=== PATIENT | female | born 1940 | race Caucasian/White ===

== ENCOUNTER 2018-10-16 23:50 | Emergency (ER) | payer OTHER ==
[~2018-10-16] VITALS: Ht 152.4 cm; Wt 60.3 kg
[2018-10-17 00:14] VITALS: BP_SYST 152
[2018-10-17 02:04] LABS: BILIRUBIN,URINE NEGATIVE (NEGATIVE); BLOOD, URINE 3+ (NEGATIVE); CLARITY/URINE CLEAR (CLEAR); COLOR,URINE RED (YELLOW); GLUCOSE,URINE NEGATIVE (NEGATIVE); KETONES,URINE NEGATIVE (NEGATIVE); LEUKOCYTE ESTERASE ,URINE 3+ (NEGATIVE); NITRITE, URINE NEGATIVE (NEGATIVE); PROTEIN URINE 1+ (NEGATIVE); UROBILINOGEN,URINE 0.2 (0.2-1.0)
[2018-10-17 02:15] LABS: BACTERIA,URINE FEW /HPF (None Seen); RBC,URINE >100 /HPF (0-3); WBC,URINE >100 /HPF (0-3)
[2018-10-17] MEDS ORDERED: PHENAZOPYRIDINE HCL 100 MG TABLET PO ONE (02:45)
[2018-10-17] MEDS ORDERED: SULFAMETHOXAZOLE/TRIMETHOPR DS 1 TABLET PO ONE (02:45)
[2018-10-17 02:58] VITALS: BP_SYST 143
== END 2018-10-17 02:58 | disposition home or self-care (01) ==
LOC: SED 23:50
DX: N39.0 Urinary tract infection, site not specified (principal); I10 Essential (primary) hypertension; E78.5 Hyperlipidemia, unspecified; Z90.49 Acquired absence of other specified parts of digestive tract
CPT/HCPCS: 81000-TC; 99283

== ENCOUNTER 2020-02-29 14:23 | Emergency (ER) | payer OTHER ==
[~2020-02-29] VITALS: Ht 149.9 cm; Wt 60.3 kg
[2020-02-29 15:05] VITALS: BP_SYST 148
--- NOTE | 2020-02-29 15:09 | NUR ---
Patient triaged and placed in waiting room. VSS and patient appears in no acute distress at this time. Awaiting available bed, and MD notified of need for MSE.
--- NOTE | 2020-02-29 15:10 | NUR ---
Patient came from home for evaluation of laceration to the top of her head. She reports that she was out shopping with a friend and the trunk of her car struck her on the top of he head. She denies nausea,vomiting, and dizziness.
--- NOTE | 2020-02-29 15:54 | NUR ---
ER Dr. Rubin in triage examining patient.
[2020-02-29 16:05] VITALS: BP_SYST 148
--- NOTE | 2020-02-29 16:05 | NUR ---
Patient given written and verbal discharge instructions and verbalizes understanding. ER MD discussed with patient the results and treatment provided. Patient in stable condition. ID arm band removed. Patient educated on pain management and to follow up with PMD. Pain Scale 0/10. Opportunity for questions provided and answered. Medication side effect fact sheet provided.
== END 2020-02-29 16:05 | disposition home or self-care (01) ==
LOC: SED 14:23
DX: S01.81XA Laceration without foreign body of other part of head, initial encounter (principal); I10 Essential (primary) hypertension; Z90.49 Acquired absence of other specified parts of digestive tract; Z86.79 Personal history of other diseases of the circulatory system; W22.8XXA Striking against or struck by other objects, initial encounter; Y93.89 Activity, other specified; Y92.89 Other specified places as the place of occurrence of the external cause; Y99.8 Other external cause status
CPT/HCPCS: 99282